=== PATIENT | female | born 1980 | race Caucasian/White ===

== ENCOUNTER 2022-09-30 19:32 | Emergency (ER) | payer OTHER ==
[~2022-09-30] VITALS: Ht 170.2 cm; Wt 117.5 kg
--- NOTE | 2022-09-30 21:25 | NUR ---
BIBS FOR L ARM/BODY NUMBNESS [id number] SEEN BY PCP. NOW C/O "BURNING SENSATION ON LEFT BACK-L LEG" [id number].
[2022-09-30] MEDS ORDERED: HYDROCODONE/APAP 5/325MG TABLET PO ONE (21:30)
[2022-09-30] MEDS ORDERED: KETOROLAC TROMETHAMINE INJ 60 MG/2 ML VIAL IM ONE ×2 (21:30→21:54)
--- NOTE | 2022-09-30 21:36 | NUR ---
PT SIGNED WAIVER FORM; PT TAKEN TO CT
--- NOTE | 2022-09-30 21:44 | NUR ---
PT RETURNED TO ER BED [address]
--- NOTE | 2022-09-30 21:47 | NUR ---
[facility] BS 103; DR. EDUARDO BRASHER AWARE
[2022-09-30] MEDS ORDERED: HYDROCODONE/APAP 5/325MG TABLET ONE (21:54)
[2022-09-30] MEDS ORDERED: IBUP-1953 PO (22:25)
[2022-09-30 23:22] VITALS: BP 125/65
--- NOTE | 2022-09-30 23:22 | NUR ---
Patient discharged to home in stable condition. Written and verbal after care instructions given. Patient verbalizes understanding of instruction.
== END 2022-09-30 23:22 | disposition home or self-care (01) ==
LOC: ER 19:40
DX: M54.89 Other dorsalgia (principal)
CPT/HCPCS: 99285; 72128; 96372; 82962; J1885

== ENCOUNTER 2022-11-05 19:53 | Emergency (ER) | payer OTHER ==
[~2022-11-05] VITALS: Ht 170.2 cm; Wt 113.4 kg
[~2022-11-05 19:53] MED LIST: IBUP-1953 PO
[2022-11-05 21:56] VITALS: BP 143/77
--- NOTE | 2022-11-06 00:02 | NUR ---
CALLED [phone]/XRAY READ
--- NOTE | 2022-11-06 02:31 | NUR ---
Patient discharged to home in stable condition. Written and verbal after care instructions given. Patient verbalizes understanding of instruction.
== END 2022-11-06 02:34 | disposition home or self-care (01) ==
LOC: ER 19:54
DX: S93.402A Sprain of unspecified ligament of left ankle, initial encounter (principal); Z79.899 Other long term (current) drug therapy; W01.0XXA Fall on same level from slipping, tripping and stumbling without subsequent striking against object, initial encounter; Y93.01 Activity, walking, marching and hiking; Y92.89 Other specified places as the place of occurrence of the external cause; Y99.8 Other external cause status
CPT/HCPCS: 73610-TC; 73630-TC